=== PATIENT | male | born 1950 | race Caucasian/White ===

== ENCOUNTER 2016-08-20 17:43 | Emergency (ER) | payer MEDICARE | END 2016-08-20 18:30 | disposition home or self-care (01) | LOC: CFTX 17:43 → CED 17:43 → CFTX 18:17 | DX: M76.62 Achilles tendinitis, left leg (principal); J44.9 Chronic obstructive pulmonary disease, unspecified; I10 Essential (primary) hypertension; F17.210 Nicotine dependence, cigarettes, uncomplicated; X50.9XXA Other and unspecified overexertion or strenuous movements or postures, initial encounter; Y92.009 Unspecified place in unspecified non-institutional (private) residence as the place of occurrence of the external cause | CPT/HCPCS: 29515; 99283 ==

== ENCOUNTER 2016-11-24 10:29 | Inpatient (IN) | payer MEDICARE ==
[~2016-11-24] VITALS: Ht 175.3 cm; Wt 95.2 kg
--- NOTE | ~2016-11-24 | US85 ---
[facility] A Service of [facility] & [facility] RADIOLOGY TEXT RESULTS PATIENT: MEGAN CHEEMA LOCATION: [place] [address]- : [birth year] UNIT #: [id number] AGE: [address]: Didier Mathew MD SEX: M ORDER DR: [id number] [facility] [address] [place], [place] [address] [id number] I MR#: [id number] Acc #: [id number] NAME: MEGAN CHEEMA : 1950 SEX: M STUDY DATE/TIME: 11/25/2016 8:17 UNIT: [facility] ROOM: [facility] STUDY DESCRIPTION: US LE Veins Unilat or Ltd Stdy Attending Physician: Didier Mathew M.D. Ordering Physician: Shelia Mercer M.D. Primary Care Physician: Generic Doctor Not In System MEDICAL IMAGING REPORT This report is preliminary unless electronic signature is present EXAM Left leg vein Doppler, 11/25. INDICATIONS Swelling and pain in the left leg for the last 5 days. FINDINGS Murdock-scale, color flow, and spectral Doppler waveform analysis is performed of the left lower extremity venous system. All the venous structures demonstrate normal compressibility and color flow. No superficial or deep venous thrombosis is identified. There is a probable reactive prominent lymph node in the left groin. It has a thinned cortex. IMPRESSION No DVT in the left leg. Dictated by... Noam Richard Jr., M.D. THIS IS AN ELECTRONICALLY VERIFIED REPORT Noam Richard Jr., M.D. at 11/25/2016 3:48 PM TONI/alberto TD: 11/25/2016 12:48 JOB #: [id number] MEDICAL IMAGING REPORT Page 1 of 1 COPY
--- NOTE | ~2016-11-24 | HP ---
Unit #: [id number] #: [id number] Patient: MGEAN CHEEMA [id number] [facility] [address] [facility]. [place], [place] [address] [id number] I MR#: [id number] NAME: MEGAN CHEEMA ROOM: 463 Age: 66 Sex: M Admission Date: 11/24/2016 : 1950 Attending Physician: Shelia Mercer M.D. HISTORY AND PHYSICAL CHIEF COMPLAINT Left foot swelling and red. HISTORY OF PRESENT ILLNESS The patient is a 66-year-old male with a past medical history of hypertension, hyperlipidemia, and recent left Achilles surgery, who presented to the emergency department for evaluation of the above. The patient states that he had surgery on his left Achilles about three weeks ago. He states that the ore charger (Dr. Lopez) did the initial dressing change about two weeks ago. A family member changed the dressing two days ago. He has had persistent swelling since surgery; however, two days ago they noted the ankle to be red and draining. The patient denies any fever, no cough or cold symptoms, no chest pain or trouble breathing, and no vomiting or diarrhea. In the emergency department, left ankle x-ray was done and showed no fracture. Attempts to reach Dr. Lopez of Podiatry were made without success. The ER physician spoke with Alessandra of [facility] who agreed to see the patient in consultation. He is being admitted to [facility] for evaluation and further treatment. He was given vancomycin in the emergency department. PAST MEDICAL HISTORY 1. Hospitalized at [facility] in 2016 for pneumonia. 2. Hypertension. 3. Hyperlipidemia. PAST SURGICAL HISTORY 1. Left Achilles tendon repair. 2. Hernia repair. SOCIAL HISTORY The patient smokes less than a pack of cigarettes daily. He reports occasional alcohol use. He is retired from [employer]. FAMILY HISTORY Notable for his mother having unknown malignancy. His dad had "heart problems." ALLERGIES No known allergies. HOME MEDICATIONS Unit #: [id number] #: [id number] Patient: MEGAN CHEEMA 1. Zestril 5 mg daily. 2. Aspirin 81 mg daily. 3. Toprol-XL 50 mg daily. 4. Furosemide 40 mg daily. 5. Aldactone 25 mg daily. 6. Lipitor 20 mg daily. 7. Percocet 5/325 q.8 hours p.r.n. REVIEW OF SYSTEMS A complete review of systems is negative except as indicated in the HPI. The patient denies a history of heart failure. He is on Furosemide and Spironolactone. He is not sure why he is on these medications. PHYSICAL EXAMINATION VITAL SIGNS: Temperature 98.3, pulse 105, respirations 16, blood pressure 158/101, and oxygen saturation is 96% on room air. GENERAL: Patient is a male who is awake, alert, and in no acute distress. HEENT: Head is atraumatic. Mucous membranes are moist. NECK: Supple. Trachea is midline. CARDIOVASCULAR: Regular rate and rhythm. LUNGS: Clear to auscultation bilaterally with no increased work of breathing. ABDOMEN: Soft and nontender with bowel sounds present in all four quadrants. EXTREMITIES: The posterior aspect of the left leg demonstrates sutures and sherley with surrounding erythema, warmth, and tenderness to palpation extending to the dorsal aspect of the foot. There is drainage from the wound that is somewhat purulent. NEUROLOGIC: Patient is awake and alert. He follows commands. PSYCHIATRIC: Mood and affect are normal. Patient is cooperative. SKIN: Skin of examined areas demonstrates the previously-described abnormalities. DIAGNOSTIC STUDIES LABORATORY: Lactic acid is 1.6. Basic metabolic panel notable for glucose of 160 and BUN and creatinine 17 and 1.3, respectively. Complete blood count notable for white blood cell count of 11.2. CRP is 2.5. IMAGING: Left foot x-ray shows no fracture. ASSESSMENT The patient is a 66-year-old male with: 1. Postoperative wound infection. The patient received vancomycin in the emergency department. 2. Status post left Achilles tendon repair. 3. Hypertension. 4. Hyperlipidemia. 5. Tobacco abuse. PLAN 1. Admit to med/surg. 2. Healthy-heart diet. 3. N.p.o. after midnight for possible surgical intervention. 4. Blood cultures x2. 5. Wound culture and sensitivity. 6. Vancomycin IV and Zosyn IV pending further workup. 7. Left lower extremity venous Doppler. Unit #: [id number] #: [id number] Patient: MEGAN CHEEMA 8. Consult Podiatry regarding postop infection. 9. P.r.n. morphine. 10. P.r.n. Zofran. 11. [facility], specifically operative report. 12. Repeat labs in the morning. 13. Additional workup and consultants based on above. 1. Dictated by Zunilda Wright/ericka TD: 11/24/2016 20:14 JOB #: [id number] HISTORY AND PHYSICAL Page 1 of 1 X Shelia Mercer MD X HISTORY AND PHYSICAL
--- NOTE | ~2016-11-24 | CO ---
Unit #: [id number] #: [id number] Patient: MEGAN KING [id number] [place] [address] [facility]. [place], [place] [address] [id number] I MR#: [id number] NAME: MEGAN KING ROOM: 463 Age: 66 Sex: M Admission Date: 11/24/2016 : 1950 Attending Physician: Didier Mathew M.D. Primary Care Physician: Generic Doctor Not In System Consultation Date: 11/24/2016 CONSULTATION REPORT REQUESTING SERVICE Medicine. CONSULTING SERVICE Podiatry. REASON FOR CONSULTATION Left foot infection. CHIEF COMPLAINT Left leg pain and redness. HISTORY OF PRESENT ILLNESS Mr. King is a 66-year-old male, who underwent Achilles tendon surgical repair 3 weeks ago. He was seen by Dr. Fish 2 weeks after that for initial followup, where the patient explains that Dr. Fish was unhappy that the dressing was wet and was not confident that the incision was completely healed. Thus the sherley and sutures were left in and the patient claims he was given antibiotic to take, although he cannot recall the antibiotics name. About 3 days ago, he noticed increased pain and swelling to the left leg. He asked his lrwamrmd-me-cah to change the dressing. The lccdkvdp-gk-xvo did not think it looked as good as it had when he was in Dr. Fish's office. So they decided to come to the emergency department at [facility]. Dr. Aleksandr Fish was attempted to be contacted several times by the [facility] Emergency Department since he was unavailable the [facility] on-call Podiatry Team was then contacted for consult and further workup. PAST MEDICAL HISTORY 1. Hypertension. 2. Hyperlipidemia. MEDICATIONS Atorvastatin, lisinopril. ALLERGIES No known drug allergies. PAST SURGICAL HISTORY Left Achilles repair. FAMILY HISTORY Denied. Unit #: [id number] #: [id number] Patient: MEGAN KING SOCIAL HISTORY Half pack-a-day smoker. REVIEW OF SYSTEMS A 14-point review of systems was all negative except for the systems mentioned in HPI. PHYSICAL EXAMINATION VITAL SIGNS: The patient is afebrile with vital signs stable. GENERAL: This is a 66-year-old male, who is in no acute distress, alert, awake, and oriented x3. EXTREMITIES: Left lower extremity focus exam; derm, surgical incision is visualized to the posterior leg and foot with sutures and sherley still intact. Significant swelling, drainage, and surrounding erythema is seen that is tracking proximally. If incision and surrounding tissue is warm to touch compared to the contralateral side. VASCULAR: DP and PT pulses are palpable with brisk cap fill time to all 5 digits. NEURO: Sensation is intact to light touch. The patient elicits numbness over the incision itself. MUSCULOSKELETAL: Muscle strength is 5/5 in all quadrants. The patient is able to adequately dorsiflex and plantar flex. Ankle and calf, warm, supple, and compressible. The patient has significant tenderness to palpation over incision. DIAGNOSTIC STUDIES LABORATORY RESULTS: White blood cell count 11.2, hemoglobin 15.4, hematocrit 45.4, and platelets 228. ESR 37. CRP 2.5. IMAGING STUDIES: X-rays of the left ankle showed no acute fractures or subluxations. Swelling to the posterior leg is seen with sherley to the surrounding soft tissue. No emphysema is noted on x-rays. ASSESSMENT A 66-year-old male, 3 weeks status post a left Achilles repair, now with a postsurgical skin and soft-tissue infection. PLAN The patient to be admitted by the hospitalist team for IV antibiotics. He will be started on vancomycin and Zosyn and scheduled wound cultures and blood cultures were obtained in the emergency department. From a podiatric perspective, the patient should remain nonweightbearing to the left lower extremity with a simple dry gauze dressing over the wound to keep it clean, dry, and intact. Discussed with attending Dr. Brandon, which seems it is likely that the patient will need to undergo surgery, however, it is unlikely the patient will go to surgery tomorrow, as we will await to see how the left leg responds to the IV antibiotics. Dr. Brandon also noted attempt will be made by him to contact Dr. Fish as well to see if he would like to take over care of the patient. We thank you for the consult and we will continue to follow Mr. King while he is in the hospital with expectations of surgical intervention as early as Friday of this upcoming week. Dictated by... Juanito Cloud M.D. for [employer]. Unit #: [id number] #: [id number] Patient: MEGAN KING LEW/chase TD: 11/25/2016 04:09 JOB #: [id number] CONSULTATION REPORT Page 1 of 1 X X CONSULTATION REPORT
--- NOTE | ~2016-11-24 | CR20 ---
[facility] A Service of [facility] RADIOLOGY TEXT RESULTS PATIENT: MEGAN CHEEMA LOCATION: [facility] : 49 UNIT #: [id number] AGE: [address]: Grady Walton MD SEX: M ORDER DR: [id number] [place] [address] [place], [place] [address] [id number] MR#: [id number] Acc #: [id number] NAME: MEGAN CHEEMA : 1950 SEX: M STUDY DATE/TIME: 11/24/2016 11:35 UNIT: [facility] ROOM: STUDY DESCRIPTION: CR Ankle Min 3 Views Lt Attending Physician: Grady Walton M.D. Ordering Physician: Grady Walton M.D. Primary Care Physician: Devi Not Listed MEDICAL IMAGING REPORT This report is preliminary unless electronic signature is present EXAM Left ankle, 11/24. INDICATION Left ankle swelling for 3 weeks. The patient had a tendon repair recently. COMPARISON None. FINDINGS Three views of the left ankle were obtained. There are skin sherley running down the posterior aspect of the ankle. There is a plantar calcaneal spur. There is no fracture visible. IMPRESSION 1. No fracture is visible. 2. Plantar calcaneal spur. 3. Postoperative changes with sherley in the posterior ankle. Dictated by... Manoj Argueta M.D. THIS IS AN ELECTRONICALLY VERIFIED REPORT Manoj Argueta M.D. at 11/24/2016 3:30 PM HERIBERTO/nallely TD: 11/24/2016 14:18 JOB #: [id number] MEDICAL IMAGING REPORT [facility] A Service [facility] RADIOLOGY TEXT RESULTS PATIENT: MEGAN CHEEMA LOCATION: [facility] : 49 UNIT #: [id number] AGE: [address]: Grady Walton MD SEX: M ORDER DR: Page 1 of 1 COPY
--- NOTE | ~2016-11-24 | OR ---
Unit #: [id number] #: [id number] Patient: MEGAN KING [id number] [address] [place], [place] [address] [id number] I MR#: [id number] NAME: MEGAN KING ROOM: 229 Date of Procedure: 11/26/2016 Admission Date: 11/24/2016 Surgeon: Aleksandr Brandon D.P.M. : 1950 Attending Physician: Didier Mathew M.D. Primary Care Physician: Generic Doctor Not In System OPERATIVE REPORT SERVICE Podiatric Surgery. PREOPERATIVE DIAGNOSES 1. Abscess, left leg. 2. Surgical site dehiscence, left Achilles tendon. POSTOPERATIVE DIAGNOSES 1. Abscess, left leg. 2. Surgical site dehiscence, left Achilles tendon. PROCEDURES PERFORMED 1. Incision and drainage, left leg. 2. Secondary Achilles tendon repair, left leg. RESIDENTS 1. Oh Osborne, PGY-2. 2. Louis Yanez, PGY-4. ANESTHESIA General. HEMOSTASIS None. ESTIMATED BLOOD LOSS 15 mL. IV FLUIDS Please see Anesthesia report. SPECIMENS None. IMPLANTS None. DRAINS None. COMPLICATIONS None. Unit #: [id number] #: [id number] Patient: MEGAN KING INDICATIONS FOR PROCEDURE Mr. King is a 66-year-old male with a primary complaint of redness and oozing out his incision on the left leg for the past 3 days. The patient states on the 11/01/2016, he had his Achilles tendon repaired. From the postoperative course, was fairly uneventful. However, the patient states 3 days ago, he was changing the dressing when he noticed that there was drainage on the dressing as well as surrounding erythema. At that time, he was advised to go to the emergency room to have someone assess it. Upon arrival to the emergency room, it was noted that there was cellulitis surrounding the incision. There was fluctuant underneath the incision and upon palpation and expression, there was white/yellow purulent material expressing at the incision site. This was cultured and was found to be back positive for MRSA. A decision at that time was made that the patient needed to go to surgery for a surgical I and D as well as to assess if there was a soft tissue abscess. The patient understands the procedure to be performed today as well as the potential complications involved. No guarantees or assurances have been given or implied. Consent was obtained preoperatively. All questions were answered. Risks versus benefits were discussed at length. DESCRIPTION OF PROCEDURE The patient was brought into the operating room. General anesthesia was induced. Then, the patient was flipped onto the operative table in the prone position. It was ensured that the patient was well padded and had adequate airwave. A surgical timeout was performed in which the patient's name, MRN, date of , surgical site, and procedure were all verified. The remaining suture and sherley were removed from the incision site. Then, the foot was scrubbed, prepped, and draped in the usual sterile manner. Attention was then directed to the incisional line areas that had healed over. However, there was still gaping especially distally utilizing a scalpel. The skin was sharply incised. It was noted by incision through the skin that there was purulent material that was expressed that was lying on top of the Achilles tendon. Upon careful dissection, the Achilles tendon was located. It was found that there was loose what appeared to be FiberWire present in the Achilles tendon. However, it was loose and that there were no knots seen in the Achilles tendon. There was also extensive gapping in a 5-cm deficit of the Achilles tendon. These loose suture was removed in toto from the Achilles tendon. Edges of the Achilles tendon and nonviable tissue were debrided and removed from the field. The Achilles tendon was then repaired with end-to-end anastomosis utilizing PDS suture. The area was then copiously irrigated with bacitracin infused normal saline and the incision was closed utilizing 3-0 Vicryl for subcutaneous tissue and 2-0 and 3-0 nylon for closure of skin. The skin did have some tension on it and retention stitches were required especially over the distal aspect of the Achilles tendon. A dry sterile compressive dressing consisting of Xeroform, 4x4s, Kerlix, and then a well-padded posterior splint were applied to the left leg. The patient was awoken from anesthesia and was transferred from the operating room to the recovery room in stable condition. The patient tolerated the procedure and anesthesia well. The patient is to remain nonweightbearing to the left lower extremity and is going to follow up in our wound care center. It is advisable that the patient is continued on antibiotic as there were evidence of soft tissue infection upon surgical debridement. Dictated by... Oh Osborne M.D. for Unit #: [id number] #: [id number] Patient: MEGAN KING D.PAury FORBES/chase TD: 11/27/2016 09:11 JOB #: [id number] OPERATIVE REPORT Page 1 of 1 X X PROCEDURE OPERATIVE NOTE
--- NOTE | ~2016-11-24 | DS ---
Unit #: [id number] #: [id number] Patient: MEGAN CHEEMA [id number] [address] [address] [id number] I MR#: [id number] NAME: MEGAN CHEEMA ROOM: 229 Age: 66 Sex: M Admission Date: 11/24/2016 : 1950 Discharge Date: 11/27/2016 Attending Physician: Didier Mathew M.D. Primary Care Physician: Generic Doctor Not In System DISCHARGE SUMMARY PRIMARY DIAGNOSIS Left ankle abscess, polymicrobial, postoperative surgical wound infection. SECONDARY DIAGNOSES 1. Hypertension. 2. Tobaccoism. 3. Obesity. 4. Mild protein malnutrition. 5. Dyslipidemia. HOSPITAL COURSE The patient was admitted to the hospital. Consultation was obtained with podiatry. Patient had previously had an Achilles tendon rupture repair approximately three weeks ago. Wound cultures grew out MRSA which was sensitive to Bactrim, a second bacteria that was also sensitive to Bactrim and pseudomonas which was pansensitive. In the setting of a healing Achilles tendon, it would be best to avoid oral Levaquin in order to have the repaired tendon be as strong as possible so we will place them on IV cefepime as well as oral Bactrim at discharge. CONSULTANTS Podiatry - surgeon was Aleksandr Brandon. DISCHARGE DISPOSITION To home. DISCHARGE STATUS Stable. DISCHARGE DIET Low sodium diet. DISCHARGE ACTIVITY With crutches. DISCHARGE FOLLOWUP With his PCP in two to three weeks. He is to have home health assist with IV antibiotics. He is to follow up with the [facility] on 12/02/2016. He should follow up with his hand binder stripper in one week. DISCHARGE MEDICATIONS 1. Cefepime 2 g IV daily for 14 days. 2. Bactrim DS, one tablet p.o. b.i.d. for 14 days. 3. Spironolactone 25 mg p.o. daily. Unit #: [id number] #: [id number] Patient: MEGAN CHEEMA 4. Percocet 5 mg, one tablet p.o. q.8 hours p.r.n. pain. 5. Aspirin 81 mg p.o. daily. 6. Lisinopril 5 mg p.o. daily. 7. Lipitor 20 mg p.o. daily. 8. Lasix 40 mg p.o. daily. 9. Metoprolol succinate 50 mg p.o. daily. Dictated by... Didier Mathew M.D. VERONICA/emma TD: 11/28/2016 06:56 JOB #: [id number] DISCHARGE SUMMARY Page 1 of 1 X Didier Mathew MD X DISCHARGE SUMMARY
[2016-11-24 11:34] LABS: BASOPHIL# 0.1 X10e3 (0-0.3); BASOPHIL% 0.7 % (0-2.5); EOSINOPHIL# 0.2 X10e3 (0-0.7); EOSINOPHIL% 2.2 % (0.0-7.0); HEMATOCRIT 45.4 % (38.0-50.0); HEMOGLOBIN 15.4 gm/dL (13.0-16.0); LYMPHOCYTE# 1.6 X10e3 (1.0-3.5); LYMPHOCYTE% 14.2 % (17.0-45.0); MEAN CELL VOLUME 94.7 FL (83-96); MEAN CORPUSCULAR HEMOGLOBIN 32.1 PG (28-34); MEAN CORPUSCULAR HGB CONC 33.9 g/dL (30-36); MEAN PLATELET VOLUME 8.4 FL (6.5-11.5); MONOCYTE# 0.8 X10e3 (0-1.0); MONOCYTE% 7.1 % (3.0-12.0); NEUTROPHIL# 8.5 X10e3 (1.5-7.1); NEUTROPHIL% 75.8 % (40-75); PLATELET COUNT 228 X10e3 (140-420); RED BLOOD COUNT 4.79 X10e (3.90-5.60); RED CELL DISTRIBUTION WIDTH 13.5 % (11.0-15.5); WHITE BLOOD COUNT 11.2 X10e3 (4.0-10.5)
[2016-11-24 11:37] LABS: DIFF IND NO
[2016-11-24 11:53] LABS: BUN/CREATININE RATIO 13.07; CALCIUM SERUM 9.6 mg/dL (8.4-10.2); CREATININE SERUM 1.3 mg/dL (0.6-1.4); GLOM FILT RATE Estimated 56.5 mL/min (>60); POTASSIUM 4.3 mmol/L (3.5-5.1)
[2016-11-24] MEDS ORDERED: ZESTRIL5 MG PO (14:49)
[2016-11-24] MEDS ORDERED: CHEWABLE ASPIRI81 MG PO (14:49)
[2016-11-24] MEDS ORDERED: FUROSEMIDE40 MG PO (14:50)
[2016-11-24] MEDS ORDERED: TOPROL XL50 MG PO (14:50)
[2016-11-24] MEDS ORDERED: LIPITOR20 MG PO (14:51)
[2016-11-24] MEDS ORDERED: ALDACTONE25 MG PO (14:51)
[2016-11-24] MEDS ORDERED: PERCOCET 5/321 UDTAB PO (14:51)
[2016-11-25 04:21] LABS: BASOPHIL# 0.1 X10e3 (0-0.3); BASOPHIL% 0.9 % (0-2.5); DIFF IND NO; EOSINOPHIL# 0.2 X10e3 (0-0.7); EOSINOPHIL% 2.8 % (0.0-7.0); HEMATOCRIT 42.8 % (38.0-50.0); HEMOGLOBIN 14.5 gm/dL (13.0-16.0); LYMPHOCYTE# 1.4 X10e3 (1.0-3.5); LYMPHOCYTE% 15.8 % (17.0-45.0); MEAN CELL VOLUME 94.9 FL (83-96); MEAN CORPUSCULAR HEMOGLOBIN 32.2 PG (28-34); MEAN CORPUSCULAR HGB CONC 33.9 g/dL (30-36); MEAN PLATELET VOLUME 8.4 FL (6.5-11.5); MONOCYTE# 0.7 X10e3 (0-1.0); NEUTROPHIL# 6.2 X10e3 (1.5-7.1); NEUTROPHIL% 72.5 % (40-75); PLATELET COUNT 199 X10e3 (140-420); RED BLOOD COUNT 4.51 X10e (3.90-5.60); RED CELL DISTRIBUTION WIDTH 13.8 % (11.0-15.5); WHITE BLOOD COUNT 8.6 X10e3 (4.0-10.5)
[2016-11-25 04:43] LABS: ALBUMIN SERUM 3.2 g/dL (3.5-5.0); BILIRUBIN,TOTAL 0.3 mg/dL (0.2-2.0); BUN/CREATININE RATIO 17.5; CALCIUM SERUM 8.6 mg/dL (8.4-10.2); CREATININE SERUM 1.2 mg/dL (0.6-1.4); GLOM FILT RATE Estimated 62.2 mL/min (>60); POTASSIUM 4.5 mmol/L (3.5-5.1); PROTEIN TOTAL SERUM 5.8 g/dL (6.0-8.3)
[2016-11-26 06:23] LABS: BASOPHIL# 0.1 X10e3 (0-0.3); BASOPHIL% 0.5 % (0-2.5); EOSINOPHIL# 0.4 X10e3 (0-0.7); EOSINOPHIL% 3.6 % (0.0-7.0); HEMATOCRIT 46.6 % (38.0-50.0); HEMOGLOBIN 15.5 gm/dL (13.0-16.0); LYMPHOCYTE# 1.6 X10e3 (1.0-3.5); LYMPHOCYTE% 15.7 % (17.0-45.0); MEAN CELL VOLUME 94.9 FL (83-96); MEAN CORPUSCULAR HEMOGLOBIN 31.6 PG (28-34); MEAN CORPUSCULAR HGB CONC 33.3 g/dL (30-36); MEAN PLATELET VOLUME 8.6 FL (6.5-11.5); MONOCYTE# 0.7 X10e3 (0-1.0); MONOCYTE% 6.6 % (3.0-12.0); NEUTROPHIL# 7.6 X10e3 (1.5-7.1); NEUTROPHIL% 73.6 % (40-75); PLATELET COUNT 223 X10e3 (140-420); RED BLOOD COUNT 4.91 X10e (3.90-5.60); RED CELL DISTRIBUTION WIDTH 13.8 % (11.0-15.5); WHITE BLOOD COUNT 10.4 X10e3 (4.0-10.5)
[2016-11-26 06:31] LABS: DIFF IND NO
[2016-11-26 07:02] LABS: BUN/CREATININE RATIO 15.45; CALCIUM SERUM 8.8 mg/dL (8.4-10.2); CREATININE SERUM 1.1 mg/dL (0.6-1.4); GLOM FILT RATE Estimated 69.1 mL/min (>60); POTASSIUM 4.5 mmol/L (3.5-5.1)
[2016-11-27] MEDS ORDERED: BACTRIM DS TAB1 EACH PO (12:14)
[2016-11-27] MEDS ORDERED: CEFEPIME HCL2 GM IV (12:15)
[2016-11-27] MEDS ORDERED: PERCOCET5/325 PO (15:35)
== END 2016-11-27 16:11 | disposition home health service (06) | DRG 857 ==
LOC: CED 10:29 → CEDOF 15:20 → CED 16:08 → CEDOF 16:08 → C4C 16:08 → CEDOF 18:35 → C4C 18:35 → C2A 11-25 18:55
PROVIDERS: Emergency Medicine; Family Medicine; Podiatrist Foot & Ankle Surgery
PROC: 0LQP0ZZ Repair Left Lower Leg Tendon, Open Approach (ICD-10-PCS; principal; 2016-11-26 07:30)
PROC: 05H333Z Insertion of Infusion Device into Right Innominate Vein, Percutaneous Approach (ICD-10-PCS; 2016-11-27)
PROC: B54MZZA Ultrasonography of Right Upper Extremity Veins, Guidance (ICD-10-PCS; 2016-11-27)
DX: T81.4XXA Infection following a procedure, initial encounter (principal); E44.1 Mild protein-calorie malnutrition; T81.30XA Disruption of wound, unspecified, initial encounter; L02.416 Cutaneous abscess of left lower limb; F17.210 Nicotine dependence, cigarettes, uncomplicated; E66.9 Obesity, unspecified; Z80.9 Family history of malignant neoplasm, unspecified; Z79.82 Long term (current) use of aspirin; B95.62 Methicillin resistant Staphylococcus aureus infection as the cause of diseases classified elsewhere
CPT/HCPCS: 36415; 73610; 80048; 80053; 80202; 83605; 85025; 85652; 86140; 87040; 87070; 87077; 87186; 87205; 93971; 96361; 96365; 96366; 96375; 99285; J0330; J0692; J1885; J2250; J2270; J2405; J2543; J3010; J3370